=== PATIENT | male | born 1955 | race Caucasian/White ===

== ENCOUNTER 2025-02-24 17:08 | Inpatient (IN) | payer MEDICARE, OTHER ==
[2025-02-24] MEDS ORDERED: Acetaminophen 325 MG TAB PO PRN (18:25)
[2025-02-24] MEDS ORDERED: Ondansetron PF 4 MG/2 ML Vial IVP PRN (18:25)
[2025-02-24 19:02] VITALS: BMI 31.4
[2025-02-24] MEDS: Nitroglycerin 2% Ointment 1 INCH/1 GM Packet TOP SCH (20:46)
[2025-02-25] MEDS: TICAGRELOR 90 MG TABLET PO SCH (01:24)
[2025-02-25 01:29] LABS: #Basophils 0.09 10x3/uL (0.0-0.2); #Eosinophils 0.25 10x3/uL (0.0-0.7); #Monocytes 0.89 10x3/uL (0.11-0.59); #Neutrophils 7.28 10x3/uL (1.40-6.50); %Basophils 0.8 % (0.0-1.0); %Eosinophils 2.3 % (0.0-10.0); %Lymphocytes 22.3 % (21.0-51.0); %Monocytes 8.1 % (0.0-10.0); %Neutrophils 66.2 % (42.0-75.0); Hematocrit 40.4 % (42.0-52.0); Hemoglobin 13.3 g/dL (14.0-18.0); Mean Corpuscular Hemoglobin 28.9 pg (27.0-31.0); Mean Corpuscular Volume 87.8 fL (78.0-98.0); Platelet Count 169 10x3/uL (130-400); Red Blood Cell (RBC) Count 4.60 mill/uL (4.70-6.10); White Blood Cell (WBC) Count 10.99 10x3/uL (4.8-10.8)
[2025-02-25] MEDS: Famotidine 20 MG TAB PO SCH (01:44)
[2025-02-25] MEDS: Magnesium 2 GM/50 ML(in water) 2 GM in Premix 1 BAG IVPB SCH (01:44)
[2025-02-25 02:00] LABS: PTT Greater than 250.0 sec (22.9-36.1)
[2025-02-25 02:25] LABS: Anion Gap 15 mmol/L (10-20); BUN (Urea Nitrogen) 20 mg/dL (8.4-25.7); Calc. Creatinine Clearance 81 mL/min (70-130); Calcium 8.6 mg/dL (7.8-10.44); Carbon Dioxide 23 mmol/L (23-31); Chloride 106 mmol/L (98-107); Glucose 96 mg/dL (83-110); Potassium 3.7 mmol/L (3.5-5.1); Sodium 140 mmol/L (136-145)
[2025-02-25] MEDS ORDERED: Enoxaparin 100 MG (1 mL) SYRINGE SC SCH (04:00)
[2025-02-25] MEDS ORDERED: Enoxaparin 80 MG (0.8 mL) SYRINGE SC SCH (04:00)
[2025-02-25 04:42] LABS: Magnesium 2.4 mg/dL (1.6-2.6)
[2025-02-25] MEDS: Heparin 10,000 UNITS/ 10 ML VIAL SLOW IVP SCH (07:06)
[2025-02-25] MEDS ORDERED: Heparin 10,000 UNITS/ 10 ML VIAL ONE (07:46)
[2025-02-25] MEDS ORDERED: Adenosine 6 mg (2 mL) VIAL ONE (07:46)
[2025-02-25] MEDS ORDERED: Lidocaine 1% (PF) 30 ML VIAL ONE (07:46)
[2025-02-25] MEDS ORDERED: Nitroglycerin 50 MG/250 ML BOT 0 ML ONE (07:47)
[2025-02-25] MEDS ORDERED: Communication Order-Pharmacy FS SCH (08:00)
[2025-02-25 08:02] VITALS: BP 132/81; TEMP 98
[2025-02-25] MEDS ORDERED: PARoxetine 20 MG TAB PO SCH ×4 (09:00→21:00)
[2025-02-25] MEDS ORDERED: Aspirin Chewable 81 MG TAB PO SCH (09:00)
[2025-02-25] MEDS ORDERED: Iopamidol 370 76% 100 ML VIAL ONE ×2 (12:00)
[2025-02-26] MEDS ORDERED: PNEUMOC 20-VAL CONJ-DIP CRM/PF 0.5 ML SYRINGE IM ONE (09:00)
== END 2025-02-25 12:35 | disposition short-term general hospital (02) | DRG 281 ==
LOC: PCU 18:15 → OBSVTOIN 02-25 07:30 → CCU 02-25 09:53
PROVIDERS: ADMIT Internal Medicine; ATTEND Family Medicine
PROC: 4A023N7 Measurement of Cardiac Sampling and Pressure, Left Heart, Percutaneous Approach (ICD-10-PCS; principal; 2025-02-25)
PROC: B2111ZZ Fluoroscopy of Multiple Coronary Arteries using Low Osmolar Contrast (ICD-10-PCS; 2025-02-25)
DX: I21.4 Non-ST elevation (NSTEMI) myocardial infarction (principal); N17.9 Acute kidney failure, unspecified; I25.10 Atherosclerotic heart disease of native coronary artery without angina pectoris; Z95.1 Presence of aortocoronary bypass graft; I10 Essential (primary) hypertension; N40.1 Benign prostatic hyperplasia with lower urinary tract symptoms; Z88.0 Allergy status to penicillin; Z98.890 Other specified postprocedural states; Z96.643 Presence of artificial hip joint, bilateral; D72.829 Elevated white blood cell count, unspecified
CPT/HCPCS: 36415; 80048; 83735; 84484; 85025; 85730; 93005; 93010; 93459; 99152; 99153; C1769; C1887; C1894; G0378; J0153; J1644; J2003; J2250; J2272; J3010; J3246; J3475; J7030; Q9967